=== PATIENT | female | born 1950 | race Caucasian/White ===

== ENCOUNTER 2019-08-06 07:20 | Day surgery (SDC) | payer MEDICARE ==
--- NOTE | 2019-07-30 14:58 | RAD REPORT ---
EXAM DESCRIPTION: RAD - Chest Pa And Lat (2 Views) - 07/30/2019 2:46 pm CLINICAL HISTORY: preop, soft tissue mass removal left leg COMPARISON: None. TECHNIQUE: PA and lateral views of the chest were obtained. FINDINGS: The lungs are clear. No failure or volume overload. No measurable air trapping. Heart siz e is normal and central vasculature is within normal limits. No pleural effusion or pneumothorax see n. No acute bony finding noted. No aortic abnormality. IMPRESSION: No acute cardiopulmonary process.
[2019-07-30 15:13] LABS: Absolute Lymphocytes (CBC) 2.9 K/uL (0.7-4.9); Basophils % 0.5 % (0-1.3); Hematocrit 39.3 % (36.0-45.0); MPV 8.7 fL (7.6-11.3); RBC Red Blood Cell Count 4.24 M/uL (3.86-4.86)
--- NOTE | 2019-07-30 15:34 | EKG ---
Test Date: 2019-07-30 Test Time: 14:26:00 An/Syq 13 Nav/C2 Operator: LISA MEASUREMENT RESULTS: Intervals: Rate: 42 SD: 140 QRSD: 112 QT: 468 QTc: 390 [place]: P: 50 SD: 140 QRS: 24 T: 51 INTERPRETIVE STATEMENTS: Marked sinus bradycardia Minimal voltage criteria for LVH, may be normal variant Septal infarct, age undetermined Abnormal ECG No previous ECG available for comparison Electronically Signed On 07-30-19 15:34:13 SHUTTLE FILLER by Nba Cervantes
[2019-07-30 15:38] LABS: BUN Blood Urea Nitrogen 14 mg/dL (7-18); Bicarbonate 32 mmol/L (21-32); Glucose Level 85 mg/dL (74-106); Potassium 3.9 mmol/L (3.5-5.1); Sodium Level 143 mmol/L (136-145)
[2019-08-06] MEDS ORDERED: Ringers Lactate 1,000 ML IV ONE (07:38)
[2019-08-06] MEDS ORDERED: propofoL 200 MG/20 ML VIAL IV ONE (08:28)
[2019-08-06] MEDS ORDERED: MIDAZOLAM HCL 2 MG/2 ML INJ ONE (08:29)
[2019-08-06] MEDS ORDERED: LIDOCAINE 2% MPF 5 ML VIAL ONE (08:29)
[2019-08-06] MEDS ORDERED: FENTANYL CITR 100 MCG/2 ML ONE (08:29)
[2019-08-06] MEDS ORDERED: ONDANSETRON 4 MG/2 ML VIAL ONE (08:31)
[2019-08-06] MEDS: CEFAZOLIN/SWI 1gm 1 GM/10 ML SYR ONE ×2 (08:35→08:57)
[2019-08-06] MEDS ORDERED: EPHEDRINE SULF 50 MG/ML VIAL ONE (09:10)
[2019-08-06] MEDS ORDERED: Mastisol Adhesive Liq ONE (09:41)
--- NOTE | 2019-08-06 09:45 | P.BOP ---
Preoperative diagnosis: right upper left lateral leg subq mass Postoperative diagnosis: same Primary procedure: Excisional biopsy R upper left lateral leg subq mass with hematoma evac. Counter Installer: ALEK UNDERWOOD (ANALYSIS MGR) Estimated blood loss: <10cc Specimen: biospy Findings: see dictation Anesthesia: General Complications: None Transferred to: Recovery Room Condition: Good
[2019-08-06 11:12] VITALS: BP 145/56; TEMP 97.8; O2SAT 99
--- NOTE | 2019-08-06 20:33 | OP ---
Date of Procedure: 08/06/2019 Surgeon: Manpreet Alejandre MD Diagnosis: Right leg lateral subcu mass. Its about a 4 x 4 cm, on MRI is 3 x 3 cm. Postoperative Diagnosis: Right leg lateral subcu mass. Its about a 4 x 4 cm, on MRI is 3 x 3 cm. Procedure: Excisional biopsy of the right lateral leg mass. Anesthesia: General plus local. Findings: Patient has this hematoma on the right lateral anterior and medial calf region. Associate d with induration of the muscle itself and the fatty tissue on top of that some of the fascia is invo lved with this an induration. The area was resected and sent for biopsy. History Of Present Illness: This is the case of a 69-year-old who has a spontaneous mass of the righ t upper leg region. She does not remember what happened there. She does not even remember any pain. The mass when she came initially with above 4 x 4 cm, on imaging it was 3 x 3 cm. Nontender, non-m obile, but definitely palpated. The etiology of that is unknown. She does not recall any falls. Sh e does not recall any sprains in that area, so she wants that excised and biopsied today and preop ev aluation is still have a lump although feels a little bit more than that one looks like the swelling of on the leg is mostly gone by now, the lump is still present and this will be addressed today. The area of concern was marked by me and the patient in the holding room. Benefits, alternatives, and r isks of excision fully explained which include but are not limited to infection, bleeding, damage to adjacent structures, and complication, nonhealing wound, recurrence, [place], even . She also unders tands this may not relieve the symptoms. She might need more than one surgical intervention. She un derstood, signed a consent. Description Of Procedure: Patient was brought to the operating room, placed in supine position. A t waleska-out was called. Right leg was prepped and draped in a sterile fashion. Local anesthesia was génesis lied followed by sharp incision of the skin over the area where we find a lump. Incision was carried down to subcutaneous tissue. We noticed that the induration of the fat in that region. We opened t he fascia, noticed hematoma present in that area. There was some mass effect. We took a biopsy of f atty tissue with the fascia and muscle adjacent to it. The lump was removed in the form of fatty tis betzy. The area was irrigated. We palpated some other areas. We do not feel any other masses. Prese nt around that area. Posterior anterior or posterior anterior once we go underneath the fascia. The area was irrigated. The fascia was approximated with 2-0 chromic and then the 2-0 chromic for the s ubcutaneous tissues since we closed this in layers and then the skin in a subcuticular fashion with 2 -0 chromic and Steri-Strips on top. Sponge count and instrument counts were correct. Patient tolera umm the procedure well. Patient was sent to recovery in stable condition. ADRIANNE/SKYLER Voice ID: [id number] Report ID: [id number]
--- NOTE | 2019-08-06 20:33 | DS ---
Date of Discharge: 08/06/2019 Diagnosis: Right leg subcutaneous mass. Postoperative Diagnosis: Right leg subcutaneous mass. Procedure: Excisional biopsy of right leg subcutaneous mass with evacuation of hematoma. Disposition: Home. Activity: As tolerated. No heavy lifting. Followup: Follow up in my office in 1 week. Call for appointment [phone]. Keep area dry for 48 ho urs, then may shower. Keep Steri-Strips intact. ADRIANNE/SKYLER Voice ID: [id number] Report ID: [id number]
== END 2019-08-06 11:05 | disposition home or self-care (01) ==
LOC: OR 07:20
PROVIDERS: ATTEND Surgery
PROC: 0JBL0ZZ Excision of Right Upper Leg Subcutaneous Tissue and Fascia, Open Approach (ICD-10-PCS; 2019-08-06)
PROC: 0JQL0ZZ Repair Right Upper Leg Subcutaneous Tissue and Fascia, Open Approach (ICD-10-PCS; principal; 2019-08-06 09:15)
DX: D17.23 Benign lipomatous neoplasm of skin and subcutaneous tissue of right leg (principal)
CPT/HCPCS: 93005; 85025; 80048; 36415; 88304; 71046; 11404; 12032; J2704; J2250; J3010; J0690; J7120; J2405; 88305